=== PATIENT | male | born 1940 | race Caucasian/White ===

== ENCOUNTER → 2016-12-02 | Outpatient (CLI) | payer OTHER | END | disposition home or self-care (01) | LOC: EKG 13:23 | DX: I07.1 Rheumatic tricuspid insufficiency (principal); I05.9 Rheumatic mitral valve disease, unspecified; I06.9 Rheumatic aortic valve disease, unspecified; I09.89 Other specified rheumatic heart diseases; R94.31 Abnormal electrocardiogram [ECG] [EKG]; R20.2 Paresthesia of skin | CPT/HCPCS: 93306 ==